=== PATIENT | female | born 1950 | race African-American/Black ===

== ENCOUNTER 2017-01-16 07:18 | Inpatient (IN) ==
[2017-01-16 07:55] LABS: Basophils % 0.4 % (0.0-0.8); Eosinophils % 0.4 % (0.00-10.9); Hematocrit 39.3 VOL% (35.7-47.0); Hemoglobin 12.9 GM/DL (12.0-16.0); Immature Granulocytes % 0.2 %; Immature Granulocytes Absolute 0.01 #; Lymphocytes # 0.9 10*3/uL (1.4-4.0); Lymphocytes % 19.6 % (21.3-54.2); Mean Corpuscular HGB Conc 32.8 GM/DL (32-36); Mean Corpuscular Hemoglobin 30 PG (27-34); Mean Corpuscular Volume 90.6 FL (87-102); Mean Platelet Volume 11.5 FL (9.6-12.0); Monocytes # 0.2 10*3/uL (0.11-0.8); Monocytes % 4.1 % (1.7-12.7); Neutrophils # 3.5 10*3/uL (1.4-7.4); Neutrophils % 75.3 % (38.7-73.9); Platelet Count 201 T/CUMM (130-400); Red Blood Count 4.34 MC/CUMM (3.8-5.5); Red Cell Distribution Width 14.7 % (9.3-17.3); White Blood Count 4.6 T/CUMM (4-12)
[2017-01-16 08:03] LABS: INR 0.9; PT Patient Result 9.4 SECS; Partial Thromboplastin Time 31.6 SECS (0-40)
[2017-01-16] MEDS ORDERED: ACETAMINOPHEN 500 MG TABLET PO STA (08:08)
[2017-01-16] MEDS ORDERED: ACETAMINOPHEN 500 MG TABLET ONE (08:10)
[2017-01-16 08:15] LABS: Hypochromasia 1+; Lymphocytes 20 % (20-55); Segmented Neutrophils 78 % (50-85); Total Cells Counted 100
[2017-01-16] MEDS ORDERED: ALBUTEROL/IPRATROPIUM 3 ML NEB RESP TX STA ×2 (08:15→11:05)
[2017-01-16 08:16] LABS: Burr Cells Few
[2017-01-16 08:20] LABS: Tear Drop Cells Slight
[2017-01-16 08:21] LABS: Microcytosis Slight
[2017-01-16 08:22] LABS: Platelet Estimate Normal
[2017-01-16 08:25] LABS: Alanine Aminotransferase 20 U/L (13-56); Albumin 3.8 G/DL (3.4-5.0); Alkaline Phosphatase 55 U/L (45-117); Aspartate Amino Transferase 34 U/L (0-37); Bilirubin,Total < 0.39 MG/DL (0.2-1.0); Blood Urea Nitrogen 19 MG/DL (7-18); Glucose 99 MG/DL (74-106); Osmolality,Calculated 280.4 MOS/KG (273-304); Potassium 4.5 MMOL/L (3.5-5.1); Sodium 140 MMOL/L (136-145); Total Protein 7.3 G/DL (6.4-8.3); Troponin I Only 0.016 NG/ML (0.00-0.045)
[2017-01-16 08:43] LABS: Apearance,Urine CLEAR (Clear); Bacteria,Urine Few /HPF (Few); Bilirubin,Urine Negative (Negative); Blood, Urine Small mg/dL (Negative); Glucose,Urine (UA) Negative (Negative); Ketones,Urine Negative (Negative); Mucus,Urine Occasional /LPF (Occasional); Nitrite,Urine Positive (Negative); Protein,Urine 30 MG/DL; RBC,Urine 15 /HPF (0-4); Urine Color Yellow (Yellow); Urine Urobilinogen < 2.0 EU/DL (0.2-1.0); WBC,Urine 1 /HPF (0-6)
[2017-01-16] MEDS ORDERED: OSELTAMIVIR 75 MG CAPSULE PO ONE (08:57)
[2017-01-16] MEDS ORDERED: ALBUTEROL 2.5 MG/3 ML NEB RESP TX PRN (09:22)
[2017-01-16] MEDS ORDERED: ONDANSETRON 4 MG/2 ML VIAL IV PRN (09:23)
[2017-01-16] MEDS ORDERED: ACETAMINOPHEN 325 MG TABLET PO PRN (09:23)
[2017-01-16] MEDS ORDERED: ZALEPLON 5 MG CAPSULE PO PRN (09:23)
[2017-01-16] MEDS ORDERED: LEVOFLOXACIN INJ 0 ML IV ONE (10:03)
[2017-01-16] MEDS ORDERED: OSELTAMIVIR 75 MG CAPSULE ONE (10:04)
[2017-01-16] MEDS ORDERED: methylPREDNISolone SOD SUC 125 MG/2 ML VIAL ONE (10:04)
[2017-01-16] MEDS: methylPREDNISolone SOD SUC 40 MG/1 ML VIAL IV SCH ×2 (10:16→21:38)
[2017-01-16] MEDS: ENOXAPARIN 40 MG/0.4 ML SYRINGE SUBCUT SCH (10:18)
[2017-01-16] MEDS: LEVOFLOXACIN INJ 750 MG in PREMIX 1 EACH IV SCH (10:21)
[2017-01-16] MEDS: ALBUTEROL/IPRATROPIUM 3 ML NEB RESP TX SCH ×2 (13:00→19:16)
[2017-01-16] MEDS: SODIUM CHLORIDE 0.45% 1,000 ML IV SCH (13:00)
[2017-01-16] MEDS: PIPERACILLIN/TAZOBACTAM 3,375 MG in SODIUM CHLORIDE 0.9% 100 ML IV SCH (18:36)
[2017-01-16 19:57] LABS: Free T4 (Free Thyroxine) 1.07 NG/DL (0.76-1.46); Thyroid Stimulating Hormone 0.271 uIU/ml (0.358-3.74)
[2017-01-16] MEDS: OSELTAMIVIR 75 MG CAPSULE PO SCH (21:38)
[2017-01-16] MEDS: MONTELUKAST 10 MG TABLET PO SCH (21:38)
[2017-01-16] MEDS: guaiFENesin/DM ER 600-30 MG TABLET PO PRN (21:39)
[2017-01-16] MEDS: DOCUSATE SODIUM 100 MG CAPSULE PO SCH (21:39)
[2017-01-16] MEDS: NICOTINE 21 MG/24 HR PATCH TRANSDERM SCH (21:40)
[2017-01-17] MEDS: PIPERACILLIN/TAZOBACTAM 3,375 MG in SODIUM CHLORIDE 0.9% 100 ML IV SCH ×3 (00:27→18:36)
[2017-01-17] MEDS: ALBUTEROL/IPRATROPIUM 3 ML NEB RESP TX SCH ×4 (00:47→20:08)
[2017-01-17 04:53] LABS: Barbiturates Screen,Urine Negative (Negative); Benzodiazepines Screen,Urine Negative (Negative); Cannabinoid Screen,Urine Positive (Negative); Opiate Screen,Urine Positive (Negative); Phencyclidine Screen,Urine Negative (Negative)
[2017-01-17 05:49] LABS: Hematocrit 38.7 VOL% (35.7-47.0); Immature Granulocytes % 0.7 %; Immature Granulocytes Absolute 0.01 #; Lymphocytes # 0.9 10*3/uL (1.4-4.0); Lymphocytes % 59.9 % (21.3-54.2); Mean Corpuscular HGB Conc 33.6 GM/DL (32-36); Mean Corpuscular Hemoglobin 30 PG (27-34); Mean Corpuscular Volume 89.6 FL (87-102); Mean Platelet Volume 11.9 FL (9.6-12.0); Monocytes # 0.1 10*3/uL (0.11-0.8); Monocytes % 6.1 % (1.7-12.7); Neutrophils # 0.5 10*3/uL (1.4-7.4); Neutrophils % 33.3 % (38.7-73.9); Platelet Count 218 T/CUMM (130-400); Red Blood Count 4.32 MC/CUMM (3.8-5.5); Red Cell Distribution Width 14.7 % (9.3-17.3); White Blood Count 1.5 T/CUMM (4-12)
[2017-01-17 06:12] LABS: Albumin 3.6 G/DL (3.4-5.0); Bilirubin,Total 0.6 MG/DL (0.2-1.0); Calcium 9.8 MG/DL (8.5-10.1); Magnesium 2.2 MG/DL (1.8-2.4); Osmolality,Calculated 283.3 MOS/KG (273-304); Potassium 4.5 MMOL/L (3.5-5.1); Risk Ratio 2.45; Total Protein 7.1 G/DL (6.4-8.3)
[2017-01-17 06:49] LABS: Hypochromasia Slight; Lymphocytes 40 % (20-55); Platelet Estimate Adequate; Segmented Neutrophils 50 % (50-85); Total Cells Counted 100
[2017-01-17] MEDS: NICOTINE 21 MG/24 HR PATCH TRANSDERM SCH (09:53)
[2017-01-17] MEDS: ENOXAPARIN 40 MG/0.4 ML SYRINGE SUBCUT SCH (09:54)
[2017-01-17] MEDS: methylPREDNISolone SOD SUC 125 MG/2 ML VIAL IV SCH ×2 (09:54→21:10)
[2017-01-17] MEDS: PANTOPRAZOLE 40 MG TABLET PO SCH (09:54)
[2017-01-17] MEDS: DOCUSATE SODIUM 100 MG CAPSULE PO SCH ×2 (09:54→21:10)
[2017-01-17] MEDS: amLODIPine 10 MG TABLET PO SCH (09:54)
[2017-01-17] MEDS: OSELTAMIVIR 75 MG CAPSULE PO SCH ×2 (09:54→21:10)
[2017-01-17] MEDS: CITALOPRAM 20 MG TABLET PO SCH (09:54)
[2017-01-17] MEDS: MONTELUKAST 10 MG TABLET PO SCH (09:54)
[2017-01-17] MEDS: LEVOFLOXACIN INJ 750 MG in PREMIX 1 EACH IV SCH (15:36)
[2017-01-17] MEDS ORDERED: IBUPROFEN 800 MG TABLET PO ONE (16:41)
[2017-01-17] MEDS: SODIUM CHLORIDE 0.45% 1,000 ML IV SCH (18:38)
[2017-01-17] MEDS: guaiFENesin/DM ER 600-30 MG TABLET PO PRN (21:09)
[2017-01-18] MEDS: ALBUTEROL/IPRATROPIUM 3 ML NEB RESP TX SCH ×2 (00:41→07:47)
[2017-01-18] MEDS: IBUPROFEN 800 MG TABLET PO SCH ×2 (00:50→08:27)
[2017-01-18] MEDS: PIPERACILLIN/TAZOBACTAM 3,375 MG in SODIUM CHLORIDE 0.9% 100 ML IV SCH ×2 (01:12→09:11)
[2017-01-18 07:50] VITALS: BP 124/79
[2017-01-18] MEDS: SODIUM CHLORIDE 0.45% 1,000 ML IV SCH (08:25)
[2017-01-18] MEDS: MONTELUKAST 10 MG TABLET PO SCH (08:27)
[2017-01-18] MEDS: CITALOPRAM 20 MG TABLET PO SCH (08:27)
[2017-01-18] MEDS: OSELTAMIVIR 75 MG CAPSULE PO SCH (08:27)
[2017-01-18] MEDS: DOCUSATE SODIUM 100 MG CAPSULE PO SCH (08:28)
[2017-01-18] MEDS: PANTOPRAZOLE 40 MG TABLET PO SCH (08:28)
[2017-01-18] MEDS: methylPREDNISolone SOD SUC 125 MG/2 ML VIAL IV SCH (08:29)
[2017-01-18] MEDS: NICOTINE 21 MG/24 HR PATCH TRANSDERM SCH (08:29)
[2017-01-18] MEDS: ENOXAPARIN 40 MG/0.4 ML SYRINGE SUBCUT SCH (08:29)
[2017-01-18] MEDS ORDERED: LEVOFLOXACIN 750 MG TABLET PO SCH (09:00)
[2017-01-18] MEDS: amLODIPine 10 MG TABLET PO SCH (10:35)
[2017-01-18 13:51] LABS: Procalcitonin, S < 0.10 ng/mL (<=0.15)
== END 2017-01-18 11:15 | disposition home or self-care (01) | DRG 871 ==
LOC: N.ED 07:18 → N.EDINP 09:20 → N.2E 16:08
PROVIDERS: ADMIT Hospitalist; ATTEND Hospitalist